=== PATIENT | male | born 1955 | race Caucasian/White ===

== ENCOUNTER → 2016-06-23 | Day surgery (SDC) | payer OTHER ==
[~2016-06-23] MED LIST: CELEXA10 MG PO; CENTRUM PO; CHANTIX PO; FISH OIL 1,0001 CAP PO; LIPITOR PO; MAGNESIUM CITR100 MG PO; MELATONIN1 MG PO; OTC ALLERGY MED; VITAMIN D2000 UNIT PO
--- NOTE | ~2016-06-23 | OR ---
Unit #: [id number] #: [id number] Patient: DARIEN LU [id number] [address] [place], [place] [address] [id number] MR#: [id number] NAME: DARIEN LU ROOM: Date of Procedure: 06/23/2016 Admission Date: 06/23/2016 Surgeon: Gerardo Josue M.D. : 1955 Attending Physician: Gerardo Josue M.D. Primary Care Physician: Rob Durbin Jr., M.D. OPERATIVE REPORT PREOPERATIVE DIAGNOSIS The patient came for surveillance colonoscopy, having personal history of colonic polyps. PROCEDURES PERFORMED Colonoscopy and polypectomy. POSTOPERATIVE DIAGNOSES 1. There were three sessile polyps in the transverse colon. One of these was removed using snare cautery polypectomy, retrieved and sent for histology. The other two were diminutive polyps that were ablated using a snare cautery tip. There were also two polyps in the descending colon, both of which were removed using snare polypectomy. 2. Rest of the examination up to cecum and terminal ileum was normal. The quality of the prep was excellent. RECOMMENDATIONS Follow up the results of polyp histology and repeat colonoscopy in 5 years. SEDATION USED MAC. DESCRIPTION OF PROCEDURE Following detailed explanation of potential risks and complications of a colonoscopy, namely perforation, bleeding, and complication related to sedation, the patient was brought to GI lab and laid in the left lateral decubitus position. A digital rectal examination was performed, which was normal. Lubricated tip of the Olympus video colonoscope was inserted through the anus and advanced under direct vision. The scope was advanced past rectosigmoid into descending colon. No diverticula were seen in this area. The scope tip was then navigated all the way up to cecum with visualization of the ileocecal valve and the appendiceal orifice. Preparation was excellent with good visualization and photodocumentation was obtained. Last several inches of the terminal ileum were also visualized after intubation of the ileocecal valve and appeared normal. Successive segments of the colonic mucosa were examined upon withdrawal. The patient was noted to have three sessile polyps in the mid transverse colon. The largest of these was about 1.2 cm in size. It was removed using snare polypectomy. There were two diminutive polyps also adjacent to this. These were ablated using snare cautery tip. There were two polyps in the descending colon, each about 5 to 7 mm each. Both were removed using snare polypectomy. No additional polyps were noted. The Unit #: [id number] #: [id number] Patient: DARIEN LU patient did not have any diverticulosis nor any hemorrhoids. He tolerated the procedure without any postprocedure complications. Dictated by... Sandra Londono/brittnee TD: 06/23/2016 15:45 JOB #: [id number] OPERATIVE REPORT X Gerardo Josue MD X PROCEDURE OPERATIVE NOTE
== END | disposition home or self-care (01) ==
LOC: COPS 12:24
DX: Z12.11 Encounter for screening for malignant neoplasm of colon (principal); D12.3 Benign neoplasm of transverse colon; D12.4 Benign neoplasm of descending colon; F17.210 Nicotine dependence, cigarettes, uncomplicated; Z79.899 Other long term (current) drug therapy; Z98.890 Other specified postprocedural states
CPT/HCPCS: 88305; J2250